=== PATIENT | male | born 2000 | race Caucasian/White ===

== ENCOUNTER 2023-01-05 13:50 | Emergency (ER) | payer OTHER | END 2023-01-05 15:41 | disposition home or self-care (01) | LOC: ERS 13:50 | DX: S00.531A Contusion of lip, initial encounter (principal); S09.93XA Unspecified injury of face, initial encounter; W20.8XXA Other cause of strike by thrown, projected or falling object, initial encounter; Y93.89 Activity, other specified | CPT/HCPCS: 99283 ==